=== PATIENT | female | born 1960 | race Caucasian/White ===

== ENCOUNTER 2018-12-13 06:15 | Day surgery (SDC) | payer OTHER ==
--- NOTE | 2018-12-07 14:01 | EKG ---
Test Date: 2018-12-07 Test Time: 10:27:29 Wire Stitcher Operator: REHANA MEASUREMENT RESULTS: Intervals: Rate: 84 VA: 164 QRSD: 92 QT: 366 QTc: 432 [place]: P: 67 VA: 164 QRS: 75 T: 58 INTERPRETIVE STATEMENTS: Normal sinus rhythm Possible Left atrial enlargement Borderline ECG No previous ECG available for comparison Electronically Signed On 12-07-18 14:00:27 PROCEDURE MANAGER by Otf Fenton
[2018-12-13] MEDS ORDERED: NA CHLORIDE 0.9% 1,000 ML ONE ×2 (07:02→07:26)
[2018-12-13] MEDS: LIDOCAINE 1% W/EPI 1:100,000 MDV 50 ML VIAL ONE ×2 (07:39→08:22)
[2018-12-13] MEDS ORDERED: PROPOFOL 200 MG/20 ML VIAL IV ONE (07:49)
[2018-12-13] MEDS ORDERED: FENTANYL CITR 100 MCG/2 ML ONE (07:49)
[2018-12-13] MEDS ORDERED: LIDOCAINE 2% MPF 5 ML VIAL ONE (07:49)
[2018-12-13] MEDS ORDERED: MIDAZOLAM HCL 2 MG/2 ML INJ ONE (07:49)
[2018-12-13] MEDS ORDERED: KETOROLAC 30 MG/ML INJ ONE (08:41)
--- NOTE | 2018-12-17 12:40 | OP ---
Surgeon: Shona Patel MD Preoperative Diagnosis: Postmenopausal bleeding. Postoperative Diagnosis: Postmenopausal bleeding. Procedures Performed: Hysteroscopy, dilation and curettage. Anesthesia: MAC plus paracervical block. Specimens: Endometrial curettings. Complications: None. Drains: None. Condition: Stable. Findings: Anterior wall with tiny polypoid area. Rest of endometrium completely unremarkable. No o ther intracavitary tumors. Both tubal ostia were well visualized. The entire cavity well visualized . Scant endometrial samplings were obtained. Indications: The patient is a 58-year-old with postmenopausal bleeding. Transvaginal ultrasound was done. She was consented for endometrial sampling to rule out endometrial hyperplasia or atypia. Donell ramírez has risk factors for this, and so she was consented. Also complained of pelvic pain that is new in onset. Her FSH level was 41.9 confirming menopause. Procedure In Detail: She was brought her to the OR, after re-consenting, taken back to the room, charlotte lesly in a supine fashion on the operating table. After MAC was given, she was placed in a dorsal lith otomy position using Jason stirrups. Pelvic exam was performed. Anteflexed uterus small. No adnexa l masses. Cervix prepped with Betadine x3. Anterior lip injected with 1% lidocaine mixed with 1:100 ,000 epinephrine, 10 cc and 5 cc each at 4 and 8 o'clock position at the cervicovaginal junction for a paracervical block. Anterior lip grasped with 2 Allis clamps. Direct hysteroscopy with a SlimLine hysteroscope, 30-degree lens, normal saline used. Canal was traversed directly under vision, and ut erine cavity was entered. Anterior wall with a polypoid area, this was scraped off the tip of the sc ope to detach this. Rest of the cavity unremarkable. Scope removed. Endometrial curettings were pe rformed. The small polypoid area was retrieved with the help of Joey forceps. After a sample was handed for permanent pathology, all instrument, needle, and sponge counts were done and were correct at the end of the case. The patient was recovered from anesthesia, after the counts were correct, t akangela to PACU in stable condition. She has a 1-week followup with me. JEANINE/NEVA Voice ID: [id number] Report ID: [id number]
== END 2018-12-13 09:35 | disposition home or self-care (01) ==
LOC: OR 06:15
PROVIDERS: ATTEND Obstetrics & Gynecology
PROC: 0UJD8ZZ Inspection of Uterus and Cervix, Via Natural or Artificial Opening Endoscopic (ICD-10-PCS; 2018-12-13)
PROC: 0UDB7ZX Extraction of Endometrium, Via Natural or Artificial Opening, Diagnostic (ICD-10-PCS; principal; 2018-12-13 07:30)
DX: N95.0 Postmenopausal bleeding (principal); R87.810 Cervical high risk human papillomavirus (HPV) DNA test positive; E11.9 Type 2 diabetes mellitus without complications; I10 Essential (primary) hypertension; E03.9 Hypothyroidism, unspecified; E06.3 Autoimmune thyroiditis; M06.9 Rheumatoid arthritis, unspecified; F32.9 Major depressive disorder, single episode, unspecified; F17.210 Nicotine dependence, cigarettes, uncomplicated; Z79.82 Long term (current) use of aspirin; Z82.49 Family history of ischemic heart disease and other diseases of the circulatory system
CPT/HCPCS: 58558; 82962; 88305; 93005; J2250; J2704; J3010; J7030 ×2

== ENCOUNTER 2020-10-28 09:46 | Inpatient (IN) | payer OTHER ==
[2020-10-28] MEDS ORDERED: IPRATROPIUM BROM 0.5MG/2.5ML ONE ×2 (10:20→18:03)
[2020-10-28] MEDS ORDERED: ALBUTEROL 2.5 MG/3 ML NEB SOL ONE (10:20)
[2020-10-28] MEDS ORDERED: dexAMETHasone 10 MG/ML VIAL ONE (10:21)
[2020-10-28 10:49] LABS: Absolute Lymphocytes (CBC) 1.5 K/uL (0.7-4.9); Basophils % 1.4 % (0-1.3); Hematocrit 49.8 % (36.0-45.0); Lymphocytes % 24.7 % (15.3-44.8); MPV 8.8 fL (7.6-11.3); RBC Red Blood Cell Count 5.19 M/uL (3.86-4.86)
[2020-10-28 10:55] LABS: Protime INR 0.92
--- NOTE | 2020-10-28 11:03 | RAD REPORT ---
EXAM DESCRIPTION: RAD - Chest Single View - 10/28/2020 10:41 am CLINICAL HISTORY: Dyspnea;Cough Chest pain. COMPARISON: Chest Pa And Lat (2 Views) dated 10/25/2020 FINDINGS: Portable technique limits examination quality. Bibasilar lung infiltrates are again seen, mildly progressive since the comparative study. Small bila teral pleural effusions. The heart is moderately enlarged in size. No displaced fractures. IMPRESSION: Mild worsening in bibasilar lung infiltrate since comparative study.
[2020-10-28 11:08] LABS: ALT/SGPT 41 U/L (12-78); AST/SGOT 35 U/L (15-37); Albumin 4.2 g/dL (3.4-5.0); Alkaline Phosphatase 94 U/L (45-117); BUN Blood Urea Nitrogen 43 mg/dL (7-18); Bicarbonate 28 mmol/L (21-32); Bilirubin Direct 0.2 mg/dL (0-0.2); Bilirubin Total 0.6 mg/dL (0.2-1.0); C-Reactive Protein 3.55 mg/L (<3.00); Ferritin 93.7 ng/mL (8-388); Glucose Level 156 mg/dL (74-106); Lipase 55 U/L (73-393); Potassium 4.2 mmol/L (3.5-5.1); Protein, Total 8.9 g/dL (6.4-8.2); Sodium Level 136 mmol/L (136-145); Troponin (Emerg Dept Use Only) < 0.02 ng/mL (0.0-0.045)
[2020-10-28] MEDS ORDERED: NA CHLORIDE 0.9% 1,000 ML ONE (11:20)
[2020-10-28] MEDS ORDERED: AZITHROMYCIN IV 500 MG in NA CHLORIDE 0.9% 250 ML IVPB ONE (11:30)
--- OUTSIDE RECORDS SUMMARY | 2020-10-28 11:35 | XMS REPORT | Continuity of Care Document ---
:1960 Author Organization [facility] t Address [address] [place] [address] Dr. Ortiz [address] [place] [address] Care Team Providers Name Role Phone Joao MACKEY Attending Clinician Problems Condition Condition Condition Status Onset Resolution Last Treating Co mments Source Name Details Category Date Date Treatment Clinician Date Hypothyroi Hypothyroi Problem Active V illage dism dism 07-24 Family 00:00: Practic 00 e Diabetes Diabetes Problem Active Carslon ge mellitus Mellitus 07-24 Family 00:00: Practic 00 e Hyperchole Hyperchole Problem Active V illage sterolemia sterolemia 07-24 Fa afshan 00:00: Practic 00 e Nicotine Nicotine Problem Active Carlson ge dependence Dependence 07-24 Fa afshan 00:00: Practic 00 e Insomnia Insomnia Problem Active 2020 Carlson ge 07-24 Family 00:00: Practic 00 e Hypertensi Hypertensi Problem Active V illage ve ve 07-24 Family disorder Disorder 00:00: Practi c 00 e Allergies, Adverse Reactions, Alerts This patient has no known allergies or adverse reactions. Social History Smoking Status Start Date Stop Date Source Light Tobacco Smoker [facility] Practice Medications Ordered Filled Start Stop Current Ordering Indication Dosage Frequency Signature Comments Components Source Medication Medication Date Date Medication? Clinician (SIG) Name Name enalapril enalapril No 1 Q1D enalapril [facility] maleate 10 maleate 10 maleate 10 Family mg tablet mg tablet mg tablet Practic Take 1 Take 1 Take 1 e tablet tablet tablet every day every day every day by oral by oral by oral route. route. route. hydrochloro hydrochloro No 1 Q1D hydrochlor [place] thiazide 25 thiazide 25 othiazide Family mg tablet mg tablet 25 mg Prac tic Take 1 Take 1 tablet e tablet tablet Take 1 every day every day tablet by oral by oral every day route. route. by oral route. levothyroxi levothyroxi No 1capsul Q1D levothyrox [facility] ne 125 mcg ne 125 mcg e(s) ine 125 Family capsule capsule mcg Practic Take 1 Take 1 capsule e capsule capsule Take 1 every day every day capsule by oral by oral every day route. route. by oral route. metformin metformin No 1 BID metformin [facility] 1,000 mg 1,000 mg 1,000 mg Fam emi tablet Take tablet Take tablet Practic 1 tablet 1 tablet Take 1 e twice a day twice a day tablet by oral by oral twice a route. route. day by oral route. trazodone trazodone No 1 Q1D trazodone [facility] 150 mg 150 mg 150 mg Family tablet Take tablet Take tablet Practic 1 tablet 1 tablet Take 1 e every day every day tablet by oral by oral every day route at route at by oral bedtime. bedtime. route at bedtime. Trulicity Trulicity No .5mL Q1W Trulicity [facility] 1.5 mg/0.5 1.5 mg/0.5 1.5 mg/0.5 Family mL mL mL Practic subcutaneou subcutaneou subcutaneo e s pen s pen us pen injector injector injector Inject 0.5 Inject 0.5 Inject 0.5 mL every mL every mL every week by week by week by subcutaneou subcutaneou subcutaneo s route. s route. us route. Vital Signs Vital Name Observation Time Observation Value Comments Source Height 2020-07-24 00:00:00 66 [in_i] [facility] BMI (Body Mass 2020-07-24 00:00:00 31.2 kg/m2 [facility] Index) Practice Body Weight 2020-07-24 00:00:00 193 [lb_av] [facility] Procedures This patient has no known procedures. Plan of Care Planned Activity Planned Date Details Comments Source Future Appointment 2021-01-21 00:00:00 Lovely Alm aDelia dunn [facility], [address]; [address], [place] [address] Instructions [facility] Encounters Start End Encounter Admission Attending Care Care Encounter Source Date/Time Date/Time Type Type Clinicians Facility Department ID 2020-10-27 2020-10-27 Refill Joao WADIEGO [id number] 00:00:00 00:00:00 Werner Benoit [id number] [place] [id number] Professio [phone] [address] 2020-09-20 2020-09-20 Office Joao [facility] [id number] 14:58:32 15:58:59 Visit Werner MULTISPEC [id number] [facility] [id number] [place] [phone] [place] [address] [facility] 2020-09-17 2020-09-17 Orders [facility]STER Shepherd [id number] 00:00:00 00:00:00 Only Werner SCHUMACHER [id number] [id number] 2020-09-13 2020-09-13 [facility] [id number] 00:00:00 00:00:00 Werner [place] [id number] [place] [id number] Professio [phone] [address] 2020-08-01 2020-08-01 Refill Joao, [facility] [id number] 00:00:00 00:00:00 Werner [place] [id number] [place] [id number] Professio [id number] [address] 2020-07-24 2020-07-24 Lovely [facility] [place] - [id number] V illage 00:00:00 00:00:00 [facility] emi farnsworth GLOBAL TRANSPORTATION MANAGER: Medical - Practi c [address] [email or web address] [facility], [address] [place] [address], [place] [address] , Ph. 2020-02-12 2020-02-12 Refill Joao [facility] [id number] 00:00:00 00:00:00 Werner Benoit [id number] [place] [id number] Profess [phone] [facility] [address] 2020-01-17 2020-01-17 Office Joao [facility] [id number] 09:30:52 10:40:44 Visit Werner Benoit [id number] [facility] [phone] [facility] [address] [facility] [address] Results This patient has no known results.
--- OUTSIDE RECORDS SUMMARY | 2020-10-28 11:36 | XMS REPORT | Summary of Care ---
:1960 Author Organization [facility] Address [address] [place] [address] Care Team Providers Name Role Phone Alex Mancilla MD Primary Care Provider [phone] Reason for Visit Reason Comments Refill Request Encounter Details Date Type Department Care Team Description 10/27/2020 Refill [facility] Endocrinology- Werner [place] [address] [address] [place] [address] [phone] Allergies Active Allergy Reactions Severity Noted Date Comments Codeine Nausea and/or Vomiting 02/11/2015 documented as of this encounter (statuses as of 10/27/2020) Medications Medication Sig Dispensed Refills Start End Date Status Date traZODONE (DESYREL) 100 Take 100 mg 0 Active mg tablet by mouth at bedtime. buPROPion (WELLBUTRIN) Take 100 mg 0 Active 100 mg tablet by mouth 3 (three) times daily. hydroCHLOROthiazide 25 Take 1 90 tablet 1 Active mg tabletIndications: tablet by 9 Essential hypertension mouth daily. ACCU-CHEK FASTCLIX Use as 100 Each 1 A ctive LANCET DRUM directed 9 MiscIndications: once a day Uncontrolled type 2 E11.65 diabetes mellitus with hyperglycemia ACCU-CHEK GUIDE USE 100 Strip 1 Acti ve stripIndications: DIRECTED 9 Uncontrolled type 2 ONCE A DAY diabetes mellitus with E11.65 hyperglycemia levothyroxine 125 mcg Take 1 90 tablet 3 Active tabletIndications: tablet by 0 Acquired hypothyroidism mouth every morning. metFORMIN 1,000 mg TAKE 1 180 tablet 3 Active tabletIndications: TABLET BY 0 Uncontrolled type 2 MOUTH TWICE diabetes mellitus with A DAY WITH hyperglycemia MEALS dulaglutide (TRULICITY) inject 1.5 6 mL 3 Active 1.5 mg/0.5 mL mg under the 0 PnIjIndications: skin weekly. Uncontrolled type 2 diabetes mellitus with hyperglycemia dapagliflozin (FARXIGA) Take 1 90 tablet 1 Active 10 mg tabletIndications: tablet by 0 Type 2 diabetes with mouth every complication morning. ATORVASTATIN 10 mg TAKE 1 90 tablet 1 A ctive tabletIndications: Mixed TABLET BY 0 hyperlipidemia MOUTH EVERYDAY AT BEDTIME ENALAPRIL 20 mg TAKE 1 90 tablet 1 Acti ve tabletIndications: TABLET BY 0 Essential hypertension MOUTH EVERY DAY ENALAPRIL 20 mg TAKE 1 90 tablet 0 10/27/20 Disc ontinued tabletIndications: TABLET BY 0 20 Essential hypertension MOUTH EVERY DAY ATORVASTATIN 10 mg TAKE 1 90 tablet 0 10/27/20 D iscontinued tabletIndications: Mixed TABLET BY 0 20 hyperlipidemia MOUTH EVERYDAY AT BEDTIME documented as of this encounter (statuses as of 10/27/2020) Active Problems Problem Noted Date Uncontrolled type 2 diabetes mellitus with hyperglycem ia 09/20/2020 PVD (peripheral vascular disease) 08/19/2016 Type 2 diabetes mellitus without complication 08/19/20 16 Elevated hematocrit 08/19/2016 Primary hypothyroidism 08/19/2016 documented as of this encounter (statuses as of 10/27/2020) Social History Tobacco Use Types Packs/Day Years Used Date Current Every Day Smoker Cigarettes, Cigars Smokeless Tobacco: Never Used Alcohol Use Drinks/Week oz/Week Comments No Sex Assigned at Date Recorded Not on file documented as of this encounter Last Filed Vital Signs Not on filedocumented in this encounter Miscellaneous Notes Telephone Encounter - Zoey Gonzalez RN - 10/27/2020 3:57 PM CSTNOV: 03/25/21 STONE: 09/20/20 plan - atorvastatin 10 mg tablet; Take 1 tablet by mouth at bedtime - enalapril 20 mg tablet; Take 1 tablet by mouth daily. Refill sent. documented in this encounter Plan of Treatment Date Type Specialty Care Team Description 03/25/2021 Office Visit Endocrinology Diabetes & Joao, Ezequiel wu MD Metabolism [address] [place] [address] [phone] Health Maintenance Due Date Last Done Comments HEPATITIS C (HCV) SCREEN 1960 Depression Screening 1971 DTaP,Tdap,and Td Vaccines 1978 (1 - Tdap) PAP SMEAR 1980 COLON CANCER SCREENING 2009 ANNUAL FIT/FOBT COLON CANCER SCREENING FIT 2009 DNA EVERY 3 YEARS COLON CANCER SCREENING 2009 SIGMOIDOSCOPY EVERY 5 YEARS COLONOSCOPY 2009 Colorectal Cancer Screening 2009 Zoster Recombinant Vaccine 2009 (SHINGRIX) (1 of 2) LUNG CANCER SCREEN: 2014 Recommended for age 55-80 with 30 + pack year history Breast Cancer Screening 09/16/2019 09/16/2018 (MAMMOGRAM) INFLUENZA VACCINE (#1) 2020 EYE EXAM 11/15/2020 Postponed from 1969 ([place] Guidelines) HgA1C 03/21/2021 09/20/2020, 01/17/2020, 03/21/2019, Additional history exists CREATININE (SERUM) 09/17/2021 09/17/2020, 03/21/2019, 02/11/2015 LDL-C 09/17/2021 09/17/2020, 03/21/2019 URINE MICROALBUMIN 09/17/2021 09/17/2020, 03/21/2019 FOOT EXAM 09/20/2021 09/20/2020, 09/20/2020, 01/17/2020, Additional history exists PNEUMOCOCCAL 0-64 YEARS Aged Out No longe r eligible COMBINED SERIES based on patient 's age to complete this topic documented as of this encounter Results Not on filedocumented in this encounter Visit Diagnoses Diagnosis Mixed hyperlipidemia Essential hypertension Unspecified essential hypertension documented in this encounter Insurance Payer Benefit Plan / Subscriber ID Effective Phone Address T e Group Dates [facility] [id number] 2020-Pres Medicare Adv PLUS STAR PLUS ent HMO [facility] [id number] 2019-Pres Medic are Adv MEDICARE NON MEDICARE NON ent PPO CONTRACTED CONTRACTED documented as of this encounter
--- NOTE | 2020-10-28 12:26 | RAD REPORT ---
EXAM DESCRIPTION: CT - Chest For Pe Angio - 10/28/2020 11:39 am CLINICAL HISTORY: Chest pain. Cough;Congestion COMPARISON: No comparisons TECHNIQUE: CT angiogram of the pulmonary arteries was performed with MIP. All CT scans are performed using dose optimization technique as appropriate and may include automated exposure control or mA/KV adjustment according to patient size. FINDINGS: No evidence of pulmonary thromboembolism. No acute aortic finding demonstrated. Ground-glass opacity in both lungs is noted with atelectasis present, suggesting mild interstitial pu lmonary edema. Cardiac size is prominent. Small bilateral pleural effusions. No concerning bony finding. IMPRESSION: No evidence of pulmonary thromboembolism. Mild CHF suspected.
[2020-10-28 13:08] LABS: NT PRO-BNP 7324 pg/mL (<125)
--- NOTE | 2020-10-28 13:55 | P.HP ---
Certification for Inpatient Patient admitted to: Observation With expected LOS: <2 Midnights Patient will require the following post-hospital care: None Practitioner: I am a practitioner with admitting privileges, knowledge of patient current condition, hospital course, and medical plan of care. Services: Services provided to patient in accordance with Admission requirements found in Title 42 Section 412.3 of the Code of Federal Regulations Patient History Date of Service: 10/28/20 Primary Care Provider: Dr. Perry Reason for admission: Dyspnea History of Present Illness: 60-year-old female with history of tobacco abuse, COPD, hypertension, diabetes, hypothyroidism, hyperlipidemia. Patient reported shortness of breath over the past 1-2 months. She was seen early in September and given Augmentin for 10 days. She reported some improvement. Then the shortness of breath continued. She then used her albuterol medication with improvement bed noted that she had to increase her frequency just to get some relief. She had reported some increased nasal congestion. She denies any fever, chills. She reports being seen by endocrinology 1-2 weeks ago. It was noted that her blood pressure was low at that time. Endocrinology decided to take her off of hydrochlorothiazide. Patient also takes enalapril. Her shortness of breath in an improved. She was told to come to the ER for further evaluation. In the ER patient evaluated. Blood pressure initially 101/58. White count 6.1, hemoglobin 16. Platelet count 178. Sodium 136, potassium 4.2. BUN of 43, creatinine 1.54 with a GFR 34. Glucose 156. Chest x-rayed showed some possible CHF. CT chest shows no pulmonary embolism. Interstitial edema noted likely CHF. COVId negative. D-dimer 550. Lactic acid within normal range at 1.3. Pro calcitonin unremarkable. BNP elevated greater than 7000. Patient given IV fluids in the emergency room. Patient stable this time. Patient admitted for further evaluation. When I saw the patient ER, patient alert, cooperative. Patient appears dry. Blood pressure is still running around 85-95 systolic with map of greater than 65. Allergies No Known Allergies Allergy (Verified 12/07/18 10:31) Home medications list reviewed: Yes Home Medications: Aspirin [Aspirin EC 81 MG] 81 mg PO DAILY 12/07/18 Atorvastatin Calcium [Lipitor] 10 mg PO BEDTIME 12/07/18 Calcium/Magnesium/Vitamin D3 [Ritchie-Mag Complex 300-150 mg Tab] 1 each PO DAILY 12/07/18 Cholecalciferol (Vitamin D3) [Vitamin D3] 1,000 unit PO DAILY 12/07/18 Dulaglutide [Trulicity] 1.5 mg SQ DAILY 12/07/18 Enalapril Maleate [Vasotec] 20 mg PO DAILY 12/07/18 Levothyroxine [Synthroid] 125 mcg PO [id number] 12/07/18 Metformin HCl [Glucophage] 1,000 mg PO DAILY 12/07/18 Selenium 50 mcg PO DAILY 12/07/18 Trazodone [Desyrel] 150 mg PO BEDTIME 12/07/18 hydroCHLOROthiazide [Hydrochlorothiazide] 25 mg PO DAILY 12/07/18 - Past Medical/Surgical History Diabetic: Yes -: Diabetes mellitus type 2 [id number] -: Hypertension -: Hyperlipidemia -: Hypothyroidism -: Tobacco abuse -: COPD -: Left knee surgery -: Tonsillectomy Psychosocial/ Personal History: Patient is a . She has 3 children. She does not work. - Family History Sister -: Hypertension - Social History Smoking Status: Current every day smoker Counseled patient to stop smoking for: less than 10 minutes Smoking therapy provided: Yes Patient receptive to therapy: Yes Alcohol use: No CD- Drugs: No Caffeine use: Yes Place of Residence: Home Review of Systems General: As per HPI Eyes: Unremarkable ENT: Nose Congestion, As per HPI Respiratory: Shortness of Breath, SOB with Excertion, As per HPI Cardiovascular: Unremarkable Gastrointestinal: Unremarkable Genitourinary: Unremarkable Musculoskeletal: Unremarkable Integumentary: Unremarkable Neurological: Unremarkable Lymphatics: Unremarkable Physical Examination - Physical Exam General: Alert, In no apparent distress, Oriented x3, Cooperative HEENT: Atraumatic, Normocephalic, Other (Dry mucous membranes) Neck: Supple Respiratory: Diminished (Minimal to the bases but clear), Other (Occasional wheeze.) Cardiovascular: Normal pulses, Regular rate/rhythm Gastrointestinal: Normal bowel sounds, Soft and benign, Non-distended, No tenderness, No masses, No rebound, No guarding Musculoskeletal: No erythema, No tenderness, No warmth Integumentary: No tenderness/swelling, Other (Dry skin noted) Neurological: Normal speech, Normal strength at 5/5 x4 extr, Normal tone, Normal affect - Studies Laboratory Data (last 24 hrs) 10/28/20 10:32: PT 10.9, INR 0.92, APTT 30.9 10/28/20 10:32: WBC 6.1, Hgb 16.6 H, Hct 49.8 H, Plt Count 178 10/28/20 10:32: Sodium 136, Potassium 4.2, BUN 43 H, Creatinine 1.54 H, Glucose 156 H, Total Bilirubin 0.6, AST 35, ALT 41, Alkaline Phosphatase 94, Lipase 55 L Microbiology Data (last 24 hrs): 10/28/20 10:12 Nasopharnyx Influenza Type A Antigen Screen - Final 10/28/20 10:12 Nasopharnyx Influenza Type B Antigen Screen - Final Assessment and Plan - Plan Impression: Dyspnea likely secondary to acute on chronic COPD with component of acute on chronic CHF likely diastolic Acute renal insufficiency suspect dehydration Hypotension with history of hypertension likely medication related Diabetes mellitus type 2 [id number]-[id number] Hypothyroidism Hyperlipidemia Tobacco abuse Plan: Dyspnea likely secondary to acute on chronic COPD with component of acute on chronic CHF likely diastolic: Patient will be admitted for further evaluation and treatment. Patient received 1 L bolus in the emergency room. Patient appears stable but will continue with maintenance fluids. Will also start Lasix low-dose b.i.d.. Obtain echocardiogram to further evaluate. Continue monitor electrolytes, telemetry and lab. Will consult pulmonology and Cardiology for further recommendation. For now no evidence of sepsis or infection. Will treat with oral steroid, COPD medication including Dulera and albuterol. Discontinue ABBEY-inhibitor and hydrochlorothiazide. Will continue monitor blood pressure closely. Anticipate improvement over the next 24 hr with possible discharge pre Acute renal insufficiency suspect dehydration: Likely pre renal. Continue IV fluids. Discontinue enalapril and hydrochlorothiazide. Will hold off on metformin as well. Will obtain renal ultrasound to further evaluate. May need to make further adjustments in medication. Hypotension with history of hypertension likely medication related: Hold enalapril and hydrochlorothiazide. Continue as above. Diabetes mellitus type 2 dlj-yccvesg-uddhrhwjb: Will check A1c. Continue sliding scale. Hold metformin and Farxiga. Hypothyroidism: Continue with home medication. Will check tsh and free T4. Hyperlipidemia: Continue with medication. Will check fasting lipid panel in the a.m.. Tobacco abuse: Will provide Nicoderm. Will teach on cessation education. Discharge Plan: Home Plan to discharge in: 24 Hours - Advance Directives Does patient have a Living Will: No Does patient have a Durable POA for Healthcare: No - Code Status/Comfort Care Code Status Assessed: Yes (Patient is full code) Time Spent Managing Pts Care (In Minutes): 55
[2020-10-28] MEDS ORDERED: GLUCAGON 1 MG/VIAL IM PRN (14:37)
[2020-10-28] MEDS ORDERED: ACETAMINOPHEN 500 MG TAB PO PRN (14:37)
[2020-10-28] MEDS ORDERED: IPRATROPIUM 200 PUFF/12.9 GM INH IH PRN (14:37)
[2020-10-28] MEDS ORDERED: ONDANSETRON 4 MG/2 ML VIAL IV PRN (14:37)
[2020-10-28] MEDS ORDERED: D50W 25 GM/50 ML SYRINGE IV PRN (14:37)
[2020-10-28] MEDS ORDERED: NA CHLORIDE 0.9% 1,000 ML IV SCH (14:37)
[2020-10-28] MEDS ORDERED: ALBUTEROL INHALER 60 PUFF/8 GM IH PRN (14:37)
--- NOTE | 2020-10-28 14:53 | ER ---
Nurse's Notes [facility] Name: Sailaja Dickens Age: 60 yrs Sex: Female : 1960 Arrival Date: 10/28/2020 Time: 09:49 Bed 8 Private MD: Alex Perry R Diagnosis: Dyspnea;Pneumonia, unspecified organism Presentation: 10/28 10:01 Chief complaint: Patient states: diagnosed with pneumonia , finished antibiotics and iw still not getting better, was sent to ER by Dr. Perry, pt has been having increasing SOB and productive cough, was COVID negative two weeks ago, no fever, has been using albuterol inhaler every 2-3 hours. Coronavirus screen: cough unrelated to allergies, shortness of breath, Client presents with at least one sign or symptom that may indicate coronavirus-19. Standard/surgical mask placed on the client. Provider contacted for isolation considerations. Ebola Screen: Patient negative for fever greater than or equal to 101.5 degrees Fahrenheit, and additional compatible Ebola Virus Disease symptoms Patient denies exposure to infectious person. Patient denies travel to an Ebola-affected area in the 21 days before illness onset. No symptoms or risks identified at this time. Initial Sepsis Screen: Does the patient meet any 2 criteria? No. Patient's initial sepsis screen is negative. Does the patient have a suspected source of infection? No. Patient's initial sepsis screen is negative. Risk Assessment: Do you want to hurt yourself or someone else? Patient reports no desire to harm self or others. Onset of symptoms was August 2020. 10:01 Method Of Arrival: Ambulatory iw 10:01 Acuity: ANGELINA 3 iw 10:45 Care prior to arrival: None. jl7 Historical: - Allergies: 10:50 No Known Allergies; jl7 - Home Meds: 10:50 Trulicity 1.5 mg/0.5 mL subcutaneous pnij 0.5 mL once wkly [Active]; Farxiga 10 mg oral jl7 tab 1 tab once daily [Active]; hydrochlorothiazide 25 mg Oral tab 1 tab once daily [Active]; levothyroxine 125 mcg tab 1 tab once daily [Active]; metformin 1,000 mg Oral tab 1 tab 2 times per day [Active]; trazodone 100 mg Oral tab [Active]; enalapril maleate 20 mg oral tab once daily [Active]; atorvastatin 10 mg oral tab 1 tab once daily [Active]; aspirin 81 mg Oral TbEC 1 tab once daily [Active]; - PMHx: 10:50 Hypothyroidism; High Cholesterol; Diabetes - NIDDM; Hypertension; jl7 - PSHx: 10:50 Tonsillectomy; Knee surgery; jl7 - Immunization history:: Adult Immunizations not up to date. - Social history:: Smoking status: Patient reports the use of cigarette tobacco products, cigars. Screenin:52 Abuse screen: Denies threats or abuse. Denies injuries from another. Nutritional jl7 screening: No deficits noted. Tuberculosis screening: No symptoms or risk factors identified. Fall Risk IV access (20 points). Total Peterson Fall Scale indicates No Risk (0-24 pts). Assessment: 10:00 General: Appears in no apparent distress. uncomfortable, Behavior is calm, cooperative, jl7 appropriate for age. Pain: Denies pain. Neuro: Level of Consciousness is awake, alert, obeys commands, Oriented to person, place, time, situation. Cardiovascular: Rhythm is regular. Respiratory: Reports shortness of breath Airway is patent Respiratory effort is even, unlabored, Respiratory pattern is regular, symmetrical. Derm: Skin is pink, warm \T\ dry. 11:30 Reassessment: Patient appears in no apparent distress at this time. Patient and/or jl7 family updated on plan of care and expected duration. Pain level reassessed. Patient is alert, oriented x 3, equal unlabored respirations, skin warm/dry/pink. Patient states feeling better. 12:43 Reassessment: Patient appears in no apparent distress at this time. Patient and/or jl7 family updated on plan of care and expected duration. Pain level reassessed. Patient is alert, oriented x 3, equal unlabored respirations, skin warm/dry/pink. Patient states feeling better. Patient states symptoms have improved. 12:55 Reassessment: Dr. Laurent at bedside. jl7 Vital Signs: 10:06 BP 123 / 86; Pulse 112; Resp 22 S; Temp 97.6; Pulse Ox 98% on R/A; iw 10:53 BP 101 / 67; Pulse 91; Resp 17; Pulse Ox 100% ; jl7 11:12 BP 91 / 62; Pulse 92; Resp 19 S; Pulse Ox 98% on R/A; jl7 12:00 BP 99 / 73; Pulse 105; Resp 17; Pulse Ox 97% ; jl7 13:08 BP 89 / 67; Pulse 112; Resp 19; Pulse Ox 96% ; jl7 14:32 BP 87 / 65; Pulse 101; Resp 17; Pulse Ox 95% ; jl7 ED Course: 09:49 Patient arrived in ED. as 09:49 Alex Perry MD is Private Physician. as 09:52 Tiara Dunaway FNP-C is [facility]. kb 09:52 Ru Lamsa MD is Attending Physician. kb 10:04 Luis Nguyen, PRANEETH is Primary Nurse. jl7 10:06 Triage completed. iw 10:15 COVID swab sent to lab. Flu and/or RSV swab sent to lab. jl7 10:28 Initial lab(s) drawn, by me, sent to lab. First set of blood cultures drawn by me. jl7 10:32 Second set of blood cultures drawn by me, EKG done, by ED staff, reviewed by Tiara PICKARD. 10:41 CXR XRAY In Process Unspecified. EDMS 10:52 Patient has correct armband on for positive identification. Placed in gown. Bed in low jl7 position. Call light in reach. Side rails up X 1. 10:52 Inserted saline lock: 20 gauge in right antecubital area, using aseptic technique. jl7 Blood collected. 10:54 Arm band placed on right wrist. jl7 11:00 secured entrance monitor on. Pulse ox on. NIBP on. jl7 11:39 CT Chest For PE Angio In Process Unspecified. EDMS 12:50 Dread Laurent DO is Hospitalizing Provider. kb 14:43 No provider procedures requiring assistance completed. Patient admitted, IV remains in jl7 place. intact, No redness/swelling at site. Administered Medications: 10:32 Drug: Decadron - Dexamethasone 10 mg Route: IVP; Site: right antecubital; jl7 12:44 Follow up: Response: No adverse reaction jl7 10:38 Drug: DuoNeb (3:1) (2.5 mg - 0.5 mg) 3 ml Route: Nebulizer; jl7 12:44 Follow up: Response: No adverse reaction jl7 11:10 Drug: NS 0.9% 1000 ml Route: IV; Rate: 1000 ml; Site: right antecubital; jl7 12:30 Follow up: Response: No adverse reaction; IV Status: Completed infusion jl7 12:02 Drug: Zithromax 500 mg Route: IVPB; Infused Over: 1 hrs; Site: right antecubital; jl7 13:00 Follow up: Response: No adverse reaction; IV Status: Completed infusion jl7 Outcome: 10:15 Admitted to Tele accompanied by tech, via wheelchair, room 213, with chart. jl7 10:15 Condition: stable 10:15 Discharge instructions given to patient, Instructed on the need for admit, Demonstrated understanding of instructions. 12:50 Decision to Hospitalize by Provider. kb 14:45 Patient left the ED. jl7 Signatures: Dispatcher [employer] Tiara Ch, CABLE DISPATCHER-C RIMMA-Fatoumata Artis Irene, RN Luis Holden RN RN jl7
--- NOTE | 2020-10-28 14:58 | EDPHYS ---
Physician Documentation [facility] Name: Sailaja Dickens Age: 60 yrs Sex: Female : 1960 Arrival Date: 10/28/2020 Time: 09:49 Bed 8 Private MD: Alex Perry R ED Physician Ru Lamas HPI: 10/28 10:59 This 60 yrs old Female presents to ER via Ambulatory with complaints of kb Shortness Of Breath. 10:59 The patient has shortness of breath with light activity. Onset: The symptoms/episode kb began/occurred 1.5 month(s) ago. Duration: The symptoms are continuous. The patient's shortness of breath is aggravated by exertion. Associated signs and symptoms: Pertinent positives: productive cough. Severity of symptoms: At their worst the symptoms were moderate in the emergency department the symptoms are unchanged. The patient has not experienced similar symptoms in the past. The patient has been recently seen by a physician:. Pt reports cough and shortness of breath since the end of August. States she has taken a course of Augmentin without relief. x-ray done on Wednesday, ordered by Dr Perry. Wednesday was called and told to come to the ER for pneumonia. Pt states she was scared to come, but her daughter in law convinced her to today. Historical: - Allergies: 10:50 No Known Allergies; jl7 - Home Meds: 10:50 Trulicity 1.5 mg/0.5 mL subcutaneous pnij 0.5 mL once wkly [Active]; Farxiga 10 mg oral jl7 tab 1 tab once daily [Active]; hydrochlorothiazide 25 mg Oral tab 1 tab once daily [Active]; levothyroxine 125 mcg tab 1 tab once daily [Active]; metformin 1,000 mg Oral tab 1 tab 2 times per day [Active]; trazodone 100 mg Oral tab [Active]; enalapril maleate 20 mg oral tab once daily [Active]; atorvastatin 10 mg oral tab 1 tab once daily [Active]; aspirin 81 mg Oral TbEC 1 tab once daily [Active]; - PMHx: 10:50 Hypothyroidism; High Cholesterol; Diabetes - NIDDM; Hypertension; jl7 - PSHx: 10:50 Tonsillectomy; Knee surgery; jl7 - Immunization history:: Adult Immunizations not up to date. - Social history:: Smoking status: Patient reports the use of cigarette tobacco products, cigars. ROS: 10:58 Constitutional: Negative for fever, chills, and weight loss, Cardiovascular: Negative kb for chest pain, palpitations, and edema, Abdomen/GI: Negative for abdominal pain, nausea, vomiting, diarrhea, and constipation, Back: Negative for injury and pain, MS/Extremity: Negative for injury and deformity, Skin: Negative for injury, rash, and discoloration, Neuro: Negative for headache, weakness, numbness, tingling, and seizure. 10:58 Respiratory: Positive for cough, dyspnea on exertion, shortness of breath, Negative for hemoptysis, orthopnea, pleurisy, wheezing. Exam: 10:57 Constitutional: This is a well developed, well nourished patient who is awake, alert, kb and in no acute distress. Head/Face: Normocephalic, atraumatic. Chest/axilla: Normal chest wall appearance and motion. Nontender with no deformity. No lesions are appreciated. Cardiovascular: Regular rate and rhythm with a normal S1 and S2. No gallops, murmurs, or rubs. Normal PMI, no JVD. No pulse deficits. Abdomen/GI: Soft, non-tender, with normal bowel sounds. No distension or tympany. No guarding or rebound. No evidence of tenderness throughout. Back: No spinal tenderness. No costovertebral tenderness. Full range of motion. Skin: Warm, dry with normal turgor. Normal color with no rashes, no lesions, and no evidence of cellulitis. MS/ Extremity: Pulses equal, no cyanosis. Neurovascular intact. Full, normal range of motion. Neuro: Awake and alert, GCS 15, oriented to person, place, time, and situation. Cranial nerves II-XII grossly intact. Motor strength 5/5 in all extremities. Sensory grossly intact. Cerebellar exam normal. Normal gait. 10:57 Respiratory: the patient does not display signs of respiratory distress, Respirations: normal, symetrical, Breath sounds: wheezing: inspiratory that is mild, is scattered. 10:57 ECG was reviewed by the Attending Physician. kb Vital Signs: 10:06 BP 123 / 86; Pulse 112; Resp 22 S; Temp 97.6; Pulse Ox 98% on R/A; iw 10:53 BP 101 / 67; Pulse 91; Resp 17; Pulse Ox 100% ; jl7 11:12 BP 91 / 62; Pulse 92; Resp 19 S; Pulse Ox 98% on R/A; jl7 12:00 BP 99 / 73; Pulse 105; Resp 17; Pulse Ox 97% ; jl7 13:08 BP 89 / 67; Pulse 112; Resp 19; Pulse Ox 96% ; jl7 14:32 BP 87 / 65; Pulse 101; Resp 17; Pulse Ox 95% ; jl7 MDM: 09:52 Patient medically screened. kb 10:58 Data reviewed: vital signs, nurses notes. Data interpreted: Pulse oximetry: on room air kb is 100 %. Interpretation: normal. 12:49 Counseling: I had a detailed discussion with the patient and/or guardian regarding: the kb historical points, exam findings, and any diagnostic results supporting the discharge/admit diagnosis, lab results, radiology results, the need for further work-up and treatment in the hospital. Physician consultation: Dread Laurent DO was contacted at 12:49, regarding admission, to the telemetry unit. patient's condition, in the emergency department to see patient at 12:49. 10/28 10:02 Order name: Blood Culture Adult (2) kb 10/28 10:02 Order name: BMP; Complete Time: 13:12 kb 10/28 10:02 Order name: C-Reactive Protein; Complete Time: 13:12 kb 10/28 10:02 Order name: CBC with Diff; Complete Time: 10:52 kb 10/28 10:02 Order name: D-Dimer; Complete Time: 11:02 kb 10/28 10:02 Order name: Ferritin; Complete Time: 13:12 kb 10/28 10:02 Order name: Flu; Complete Time: 10:52 kb 10/28 10:02 Order name: Lactate; Complete Time: 11:10 kb 10/28 10:02 Order name: LFT's; Complete Time: 13:12 kb 10/28 10:02 Order name: Lipase; Complete Time: 13:12 kb 10/28 10:02 Order name: Procalcitonin; Complete Time: 11:47 kb 10/28 10:02 Order name: PT-INR; Complete Time: 11:02 kb 10/28 10:02 Order name: Ptt, Activated; Complete Time: 11:02 kb 10/28 10:02 Order name: Troponin (emerg Dept Use Only); Complete Time: 13:12 kb 10/28 10:02 Order name: CXR XRAY; Complete Time: 11:10 kb 10/28 10:02 Order name: EKG; Complete Time: 10:08 kb 10/28 10:02 Order name: Cardiac monitoring; Complete Time: 10:44 kb 10/28 10:02 Order name: Droplet/Contact Precautions; Complete Time: 10:44 kb 10/28 10:02 Order name: EKG - Nurse/Tech; Complete Time: 10:44 kb 10/28 10:02 Order name: IV Start; Complete Time: 10:44 kb 10/28 10:02 Order name: Labs collected and sent; Complete Time: 10:44 kb 10/28 11:02 Order name: CT Chest For PE Angio; Complete Time: 12:43 kb 10/28 11:29 Order name: SARS-COV-2 RT PCR; Complete Time: 11:32 EDMS 10/28 12:45 Order name: Add On-Lab kb 10/28 12:54 Order name: NT PRO-BNP; Complete Time: 13:12 EDMS 10/28 10:02 Order name: O2 Per Protocol; Complete Time: 10:44 kb 10/28 10:02 Order name: O2 Sat Monitoring; Complete Time: 10:44 kb EC:57 Rate is 103 beats/min. Rhythm is regular. QRS [place] is Normal. [place] interval is normal at kb 198 msec. QRS interval is normal at 98 msec. QT interval is normal at 344 msec. Administered Medications: 10:32 Drug: Decadron - Dexamethasone 10 mg Route: IVP; Site: right antecubital; jl7 12:44 Follow up: Response: No adverse reaction jl7 10:38 Drug: DuoNeb (3:1) (2.5 mg - 0.5 mg) 3 ml Route: Nebulizer; jl7 12:44 Follow up: Response: No adverse reaction jl7 11:10 Drug: NS 0.9% 1000 ml Route: IV; Rate: 1000 ml; Site: right antecubital; jl7 12:30 Follow up: Response: No adverse reaction; IV Status: Completed infusion jl7 12:02 Drug: Zithromax 500 mg Route: IVPB; Infused Over: 1 hrs; Site: right antecubital; jl7 13:00 Follow up: Response: No adverse reaction; IV Status: Completed infusion jl7 Disposition: 17:44 Co-signature as Attending Physician, Ru Lamas MD. rn Disposition: 10/28/20 12:50 Hospitalization ordered by Dread Laurent for Observation. Preliminary diagnosis are Dyspnea, Pneumonia, unspecified organism. - Bed requested for Telemetry/MedSurg (observation). - Status is Observation. jl7 - Condition is Stable. - Problem is new. - Symptoms are unchanged. Signatures: Dispatcher [employer] EDCT Tiara Dunaway, MACHINE OR MACHINERY MECHANIC-C MACHINE OR MACHINERY MECHANIC-Ckb Melanie Sanchez, RN RN dw Ru Lamas MD MD rn Leal, Jahala, RN RN jl7 Corrections: (The following items were deleted from the chart) 10:35 10:08 CORONAVIRUS+MR.LAB.BRZ ordered. [facility] 13:59 12:50 Hospitalization Ordered by Dread Laurent DO for Observation. Preliminary diagnosis is Dyspnea; Pneumonia, unspecified organism. Bed requested for Telemetry/MedSurg (observation). Status is Observation. Condition is Stable. Problem is new. Symptoms are unchanged. kb 14:45 13:59 10/28/2020 12:50 Hospitalization Ordered by Dread Laurent DO for Observation. jl7 Preliminary diagnosis is Dyspnea; Pneumonia, unspecified organism. Bed requested for Telemetry/MedSurg (observation). Status is Observation. Condition is Stable. Problem is new. Symptoms are unchanged. dw
[2020-10-28] MEDS: predniSONE 10 MG TAB PO SCH ×2 (15:40→21:22)
[2020-10-28] MEDS: FUROSEMIDE 20 MG TABLET PO SCH (16:09)
--- NOTE | 2020-10-28 16:34 | RAD REPORT ---
EXAM DESCRIPTION: US - Renal Ultrasound-Complete - 10/28/2020 3:59 pm CLINICAL HISTORY: . Chronic renal disease COMPARISON: None. FINDINGS: The right kidney measures 10 cm with a normal echotexture. The left kidney measures 10 cm with a normal echotexture. Hydronephrosis is not seen. The bladder is decompressed as the patient recently voided. IMPRESSION: Unremarkable renal ultrasound.
[2020-10-28] MEDS: INSULIN -REGULAR HUMAN 50 UNIT/0.5 ML ML SQ SCH ×2 (16:36→21:22)
[2020-10-28] MEDS ORDERED: LEVALBUTEROL 1.25 MG/3 ML NEB ONE (18:06)
[2020-10-28 18:31] LABS: Urine Appearance CLEAR; Urine Bilirubin NEGATIVE (NEG); Urine Blood 1+ (NEG); Urine Color YELLOW; Urine Glucose 3+ (NEG); Urine Protein NEGATIVE (NEG); Urine Specific Gravity >=1.030 (1.005-1.030)
[2020-10-28 18:43] LABS: Urine Microscopic Reflex ORDER UMIC
[2020-10-28 18:49] LABS: Urine Bacteria <20 /HPF (<20); Urine Mucus 1+ /HPF (NONE SEEN)
[2020-10-28] MEDS ORDERED: LORazepam 2 MG/ML VIAL IV ONE (19:39)
[2020-10-28 19:42] LABS: CKMB Creatine Kinase MB 2.8 ng/mL (0.3-3.6); Creatine Phosphokinase 109 U/L (26-192); Troponin I < 0.02 ng/mL (0.0-0.045)
[2020-10-28] MEDS: DULERA 100/5 (MOMETASONE/FORMOTEROL) INHALER IH SCH (21:00)
[2020-10-28] MEDS: ATORVASTATIN 40 MG TAB PO SCH (21:22)
[2020-10-28] MEDS ORDERED: TRAZODONE 50 MG TABLET PO PRN (21:47)
[2020-10-29 01:38] LABS: Arterial Blood Carboxyhemoglob 3.6 % (0-1.5); Blood Gas Oxyhemoglobin 89.1 % (94-97); Blood O2 Saturation 93.5 % (92-98.5)
[2020-10-29] MEDS ORDERED: LORazepam 2 MG/ML VIAL ONE (02:20)
[2020-10-29 05:31] LABS: Absolute Lymphocytes (CBC) 0.6 K/uL (0.7-4.9); Basophils % 0.3 % (0-1.3); Hematocrit 47.1 % (36.0-45.0); Lymphocytes % 8.5 % (15.3-44.8); MPV 9.2 fL (7.6-11.3); RBC Red Blood Cell Count 4.84 M/uL (3.86-4.86)
[2020-10-29 05:34] LABS: CKMB Creatine Kinase MB 7.2 ng/mL (0.3-3.6); Potassium 4.5 mmol/L (3.5-5.1); Thyroid Stimulating Hormone 0.95 uIU/mL (0.360-3.740); Troponin I 0.35 ng/mL (0.0-0.045)
[2020-10-29] MEDS: LEVOTHYROXINE SOD 0.125 MG TAB PO SCH (06:42)
[2020-10-29 06:44] LABS: Platelet Estimate ADEQ
[2020-10-29 06:45] LABS: Blood Morphology Comment NOTED (NOT SEEN); Burr Cells 1+; Polychromasia SLIGHT
[2020-10-29] MEDS ORDERED: HEPARIN/D5W 25,000 UNIT/500 ML BAG IV SCH (07:00)
[2020-10-29] MEDS: INSULIN -REGULAR HUMAN 50 UNIT/0.5 ML ML SQ SCH ×4 (07:30→20:26)
[2020-10-29] MEDS: LEVALBUTEROL 0.63 MG/3 ML NEB NEB PRN ×3 (07:54→20:30)
[2020-10-29] MEDS: FUROSEMIDE 20 MG TABLET PO SCH (08:52)
[2020-10-29] MEDS: ASPIRIN 81 MG CHEWABLE TABLET PO SCH (08:53)
[2020-10-29] MEDS: predniSONE 10 MG TAB PO SCH (08:53)
[2020-10-29] MEDS: DULERA 100/5 (MOMETASONE/FORMOTEROL) INHALER IH SCH ×2 (08:54→20:26)
[2020-10-29] MEDS ORDERED: ENOXAPARIN 40 MG/0.4 ML SQ SCH (09:00)
[2020-10-29] MEDS: METHYLPREDNISOLONE 40 MG INJ IV SCH ×2 (11:51→16:28)
--- NOTE | 2020-10-29 12:25 | P.CNS ---
Date of Consult: 10/29/20 Primary Care Provider: Dr. Perry Chief Complaint: Dyspnea History of Present Illness: Patient is 60 years of age with a history of active tobacco abuse multiple medical problems admitted with progressive dyspnea history of treatment with up Augmentin some improvement patient is not in any bronchodilators or tested for COPD and severe diabetes and hypertension developed some respiratory distress and was admitted to the hospital for he has underlying congestive heart failure bilateral pleural effusions patient is feeling a little better Allergies No Known Allergies Allergy (Verified 12/07/18 10:31) Home Medications: Aspirin [Aspirin EC 81 MG] 81 mg PO DAILY 12/07/18 Atorvastatin Calcium [Lipitor] 10 mg PO BEDTIME 12/07/18 Dulaglutide [Trulicity] 1.5 mg SQ EVERY 7TH DAY 12/07/18 Enalapril Maleate [Vasotec] 20 mg PO DAILY 12/07/18 Levothyroxine [Synthroid] 125 mcg PO [id number] 12/07/18 Metformin HCl [Glucophage] 1,000 mg PO BID 12/07/18 Trazodone [Desyrel] 200 mg PO BEDTIME 12/07/18 hydroCHLOROthiazide [Hydrochlorothiazide] 25 mg PO DAILY 12/07/18 Dapagliflozin Propanediol [Farxiga] 1 tab PO DAILY 10/28/20 - Past Medical/Surgical History Diabetic: Yes -: Diabetes mellitus type 2 [id number] -: Hypertension -: Hyperlipidemia -: Hypothyroidism -: Tobacco abuse -: COPD -: Left knee surgery -: Tonsillectomy Psychosocial/ Personal History: Patient is a . She has 3 children. She does not work. - Family History Sister Medical History: Hypertension Father Medical History: Hypertension Mother Medical History: Hypertension - Social History Alcohol use: No CD- Drugs: No Caffeine use: Yes Place of Residence: Home Review of Systems 10-point ROS is otherwise unremarkable General: Weakness Respiratory: Cough, Shortness of Breath Physical Examination Temp Pulse Resp BP Pulse Ox 97.6 F 102 H 20 110/70 100 10/29/20 04:00 10/29/20 08:52 10/29/20 08:00 10/29/20 08:52 10/29/20 08:00 General: Alert, In no apparent distress, Oriented x3 Respiratory: Clear to auscultation bilaterally, Diminished Cardiovascular: No edema, Regular rate/rhythm Gastrointestinal: Normal bowel sounds, Non-distended Musculoskeletal: No swelling Laboratory Data (last 24 hrs) 10/28/20 10:32: Sodium 136, Potassium 4.2, BUN 43 H, Creatinine 1.54 H, Glucose 156 H, Total Bilirubin 0.6, AST 35, ALT 41, Alkaline Phosphatase 94, Lipase 55 L - Problems (1) COPD exacerbation Current Visit: Yes Status: Acute Plan: Harris is 60 years of age heavy smoker probably has underlying obstructive airways disease this feeling a little better harris was hypoxic condition a metabolic and respiratory acidosis as renal dysfunction severe diabetes the dense of sepsis recommend bronchodilators low-dose steroids the elevated troponin most likely induced by hypoxemia poly need outpatient evaluation there is no significant EKG changes the scan shows bilateral pleural effusion renal impairment
--- NOTE | 2020-10-29 12:36 | P.PN ---
Subjective Date of Service: 10/29/20 Primary Care Provider: Dr. Perry Chief Complaint: Dyspnea Subjective: Other (Patient has shortness of breath early this morning. Patient required BiPAP. Currently on BiPAP at this time.) Physical Examination - Vital Signs Temperature: 97.0 F Blood Pressure: 107/69 Pulse: 103 Respirations: 20 Pulse Ox (%): 99 - Physical Exam General: Alert, Oriented x3, Cooperative, Mild distress HEENT: Atraumatic Neck: Supple Respiratory: Diminished, Expiratory wheezes Cardiovascular: Normal pulses, Regular rate/rhythm Gastrointestinal: Normal bowel sounds, No tenderness, No masses, No rebound, No guarding Musculoskeletal: No erythema, No tenderness, No warmth Integumentary: No tenderness/swelling, No erythema, No warmth, No cyanosis Neurological: Normal speech, Normal strength at 5/5 x4 extr, Normal tone, Normal affect - Studies Laboratory Data (last 24 hrs) 10/28/20 10:32: Sodium 136, Potassium 4.2, BUN 43 H, Creatinine 1.54 H, Glucose 156 H, Total Bilirubin 0.6, AST 35, ALT 41, Alkaline Phosphatase 94, Lipase 55 L Microbiology Data (last 24 hrs): 10/28/20 10:12 Nasopharnyx Influenza Type A Antigen Screen - Final 10/28/20 10:12 Nasopharnyx Influenza Type B Antigen Screen - Final Medications List Reviewed: Yes Assessment & Plan Discharge Plan: Home Plan to discharge in: 48 Hours Physician Review Additional Text: Impression: Dyspnea secondary to acute respiratory failure with COPD exacerbation and acute on chronic diastolic CHF complicated with metabolic/respiratory acidosis Elevated troponin likely ischemic demand with possible underlying CAD Acute on chronic renal disease stage III Hypotension with history of hypertension likely medication related Diabetes mellitus type 2 [id number] Hypothyroidism Hyperlipidemia Tobacco abuse Plan: Dyspnea secondary to acute respiratory failure with COPD exacerbation and acute on chronic diastolic CHF complicated with metabolic/respiratory acidosis: Patient had difficulty breathing last night. Patient required BiPAP. Continue to wean off BiPAP. Case discussed in detail with cardiology and pulmonology. Will obtain echocardiogram. Patient had elevated troponin likely ischemic demand. Will change oral steroid to IV steroid. Continue COPD medication. Will add IV Lasix. Await echo results. Continue monitor closely. Medications have been adjusted. Patient will likely require home oxygen at discharge. Anticipate improvement over the next 24-48 hr. Elevated troponin likely ischemic demand with possible underlying CAD: Case discussed with cardiology. Likely ischemic demand. Continue heparin for DVT prophylaxis. No need for intervention at this time. Obtain echocardiogram to further evaluate. Await further recommendations from cardiology. Acute on Chronic renal disease stage III: Renal function has improved. Medications enalapril and hydrochlorothiazide currently on hold. This also includes her metformin and Farxiga. Continue monitor renal function. Will monitor and adjust medication.. Hypotension with history of hypertension likely medication related: Continue to hold enalapril and hydrochlorothiazide. Will monitor and adjust appropriately. Diabetes mellitus type 2 [id number]: A1c 7.0. Continue sliding scale. Hold metformin and Farxiga. Will need to obtain and verify home medication. Hypothyroidism: Continue with home medication. Hyperlipidemia: Continue with medication. Tobacco abuse: Will provide Nicoderm. Will teach on cessation education. Time Spent Managing Pts Care (In Minutes): 55
--- NOTE | 2020-10-29 14:21 | ECHO ---
HEIGHT: 5 ft 6 in WEIGHT: 197 lb 0 oz DATE OF STUDY: 10/29/[address]: 2-DIMENSIONAL: YES M.MODE: YES DOPPLER: YES COLOR FLOW: YES TDS: YES PORTABLE: DEFINITY: BUBBLE STUDY: DIAGNOSIS: EVALUATE FOR CONGESTIVE HEART FAILURE, PRESENTS WITH DYSPNEA CARDIAC HISTORY: CATHERIZATION: NO SURGERY: NO PROSTHETIC VALVE: NO PACEMAKER: NO MEASUREMENTS (cm) DIASTOLIC (NORMALS) SYSTOLIC (NORMALS) IVSd 0.9 (0.6-1.2) LA Diam 2.6 (1.9-4.0) LVEF 40-45% LVIDd 5.5 (3.5-5.7) LVIDs 4.2 (2.0-3.5) %FS % LVPWd 1.1 (0.6-1.2) Ao Diam 2.5 (2.0-3.7) 2 DIMENSIONAL ASSESSMENT: RIGHT ATRIUM: NORMAL LEFT ATRIUM: NORMAL RIGHT VENTRICLE: NORMAL LEFT VENTRICLE: NORMAL TRICUSPID VALVE: NORMAL MITRAL VALVE: NORMAL PULMONIC VALVE: NORMAL AORTIC VALVE: NORMAL PERICARDIAL EFFUSION: NONE AORTIC ROOT: NORMAL LEFT VENTRICULAR WALL MOTION: FELIX APICAL AKINESIS. DOPPLER/COLOR FLOW: MILD TRICUSPID AND MITRAL REGURGITATION. NORMAL RIGHT VENTRICULAR SYSTOLIC PRESSURE. COMMENTS: FELIX APICAL AKINESIS. EJECTION FRACTION 40-45%. MILD MITRAL AND TRICUSPID REGURGITATION. NORMAL RIGHT VENTRICULAR SYSTOLIC PRESSURE. TECHNOLOGIST: LUIZA CHOUDHURY
--- NOTE | 2020-10-29 20:00 | CON ---
Date of Consultation: 10/29/2020 Reason For Consultation: Elevated troponin. History Of Present Illness: Ms. Dickens is a 60-year-old woman, who came in complaining of shortness o f breath. She had shortness of breath with minimal activities that began about a month and a half ag o. It is exertional. She has had some productive cough. Denied any chest pain. Chest x-ray was or dered by Dr. Vallejo showed pneumonia. She denied any actual chest pain, nausea, vomiting. She denied PND, orthopnea, pedal edema, palpitations, or syncope. Denied any fever or chills. Allergies: NONE. Review of Systems: Negative. Social History: Negative. Family History: Noncontributory. Medications: Include Trulicity, Farxiga, hydrochlorothiazide, levothyroxine, metformin, trazodone, e nalapril, Lipitor, and aspirin. Past Medical History: Include hypertension, diabetes, dyslipidemia, and hypothyroidism. Physical Examination: Vital Signs: Stable. She was in sinus tachycardia. O2 saturation was 98% on 4 L nasal cannula. HEENT: Negative. Neck: Supple. No bruit. Chest: Diffuse expiratory wheezing. Cardiac: Regular rhythm and rate. No murmurs, gallops, or rubs. Abdomen: Benign. Extremities: No clubbing, cyanosis, or edema. Diagnostic Data: PO2 was 73, pCO2 was 45, pH was 7.27. Her creatinine is 1.38. White count is norm al. D-dimer was 550. Troponin was 0.35. C-reactive protein was 3.55. Impression And Plan: 1.Shortness of breath, most likely secondary to chronic obstructive pulmonary disease exacerbation. 2.Elevated troponin, most likely demand ischemia. Echocardiogram is pending. 3.Hypertension, well controlled. 4.Dyslipidemia. 5.Diabetes, well controlled. 6.Hypothyroidism. The patient presently is on inhalers, aspirin, Lipitor, Lasix, insulin, lorazepam, Synthroid, steroid s. We will continue her present regimen, see what the echocardiogram shows before making further dec isions regarding the troponin. I will discuss the case further with Dr. Laurent. YADIRA/NEVA Voice ID: [id number] Report ID: [id number]
[2020-10-29] MEDS: ATORVASTATIN 40 MG TAB PO SCH (20:27)
[2020-10-29] MEDS: LORazepam 2 MG/ML VIAL IV PRN (20:28)
[2020-10-29] MEDS: HEPARIN 5000 UNIT/ML 1 ML VIAL SQ SCH (20:28)
[2020-10-29] MEDS: FUROSEMIDE 20 MG/ 2ML VIAL IV SCH (21:46)
[2020-10-30] MEDS: METHYLPREDNISOLONE 40 MG INJ IV SCH ×3 (01:35→17:32)
[2020-10-30] MEDS: LEVALBUTEROL 0.63 MG/3 ML NEB NEB PRN ×4 (01:45→22:50)
[2020-10-30] MEDS: LEVOTHYROXINE SOD 0.125 MG TAB PO SCH (06:32)
[2020-10-30] MEDS: ASPIRIN 81 MG CHEWABLE TABLET PO SCH (09:11)
[2020-10-30] MEDS: HEPARIN 5000 UNIT/ML 1 ML VIAL SQ SCH ×2 (09:11→21:00)
[2020-10-30] MEDS: INSULIN -REGULAR HUMAN 50 UNIT/0.5 ML ML SQ SCH ×4 (09:11→21:44)
[2020-10-30] MEDS: FUROSEMIDE 20 MG/ 2ML VIAL IV SCH ×2 (09:26→21:44)
[2020-10-30] MEDS: DULERA 100/5 (MOMETASONE/FORMOTEROL) INHALER IH SCH ×2 (09:30→21:44)
--- NOTE | 2020-10-30 15:32 | P.PN ---
Subjective Date of Service: 10/30/20 Primary Care Provider: Dr. Perry Chief Complaint: Dyspnea Subjective: Improving Physical Examination - Vital Signs Temperature: 97.5 F Blood Pressure: 113/71 Pulse: 107 Respirations: 20 Pulse Ox (%): 97 - Physical Exam General: Alert, Cooperative HEENT: Atraumatic Neck: Supple Respiratory: Clear to auscultation bilaterally, Normal air movement Cardiovascular: Normal pulses, Regular rate/rhythm Neurological: Normal speech, Normal strength at 5/5 x4 extr, Normal tone, Normal affect - Studies Microbiology Data (last 24 hrs): 10/28/20 18:12 Sputum Sputum Gram Stain - Final 10/28/20 18:12 Sputum Culture & Sensitivity - Final Medications List Reviewed: Yes Assessment & Plan Discharge Plan: Home Plan to discharge in: 48 Hours Physician Review Additional Text: Impression: Dyspnea secondary to acute respiratory failure with COPD exacerbation and acute on chronic systolic CHF complicated with metabolic/respiratory acidosis Elevated troponin likely ischemic demand with possible underlying CAD with noted anterior apical akinesis on echo Acute on chronic renal disease stage III Hypotension with history of hypertension likely medication related Diabetes mellitus type 2 [id number] Hypothyroidism Hyperlipidemia Tobacco abuse Plan: Dyspnea secondary to acute respiratory failure with COPD exacerbation and acute on chronic systolic CHF complicated with metabolic/respiratory acidosis: Echocardiogram shows anterior apical akinesis. Ejection fraction 40%. Cardiology recommended heart catheterization to better stratify. Continue current treatment for CHF and COPD. This was addressed in detail with patient. Patient agrees. Patient will have heart catheterization tomorrow. Elevated troponin likely ischemic demand with possible underlying CAD with noted anterior apical akinesis on echo.: Continue as above. Will pursue heart catheterization tomorrow. Acute on Chronic renal disease stage III: Renal function has improved. Medications enalapril and hydrochlorothiazide currently on hold. This also includes her metformin and Farxiga. Continue monitor renal function. Will monitor and adjust medication.. Hypotension with history of hypertension likely medication related: Continue to hold enalapril and hydrochlorothiazide. Will monitor and adjust appropriately. Diabetes mellitus type 2 [id number]: A1c 7.0. Continue sliding scale. Hold metformin and Farxiga. Will need to obtain and verify home medication. Hypothyroidism: Continue with home medication. Hyperlipidemia: Continue with medication. Tobacco abuse: Will provide Nicoderm. Will teach on cessation education. Time Spent Managing Pts Care (In Minutes): 55
[2020-10-30] MEDS: ATORVASTATIN 40 MG TAB PO SCH (21:44)
[2020-10-30] MEDS: LORazepam 2 MG/ML VIAL IV PRN (23:10)
[2020-10-31] MEDS: METHYLPREDNISOLONE 40 MG INJ IV SCH ×2 (00:22→09:03)
[2020-10-31] MEDS: LEVOTHYROXINE SOD 0.125 MG TAB PO SCH (06:27)
[2020-10-31] MEDS: ASPIRIN 81 MG CHEWABLE TABLET PO SCH (06:27)
[2020-10-31] MEDS: METOPROLOL TAR 25 MG TAB PO SCH ×2 (06:27→18:00)
[2020-10-31] MEDS ORDERED: METOPROLOL TAR 25 MG TAB ONE (06:39)
[2020-10-31] MEDS ORDERED: METOPROLOL TAR 25 MG TAB PO ONE (06:53)
[2020-10-31] MEDS: LEVALBUTEROL 0.63 MG/3 ML NEB NEB PRN ×2 (07:40→19:50)
[2020-10-31] MEDS: HEPARIN 5000 UNIT/ML 1 ML VIAL SQ SCH ×2 (09:00→20:49)
[2020-10-31] MEDS: DULERA 100/5 (MOMETASONE/FORMOTEROL) INHALER IH SCH ×2 (09:02→20:50)
[2020-10-31] MEDS: FUROSEMIDE 20 MG/ 2ML VIAL IV SCH ×2 (09:02→20:47)
[2020-10-31] MEDS: INSULIN -REGULAR HUMAN 50 UNIT/0.5 ML ML SQ SCH ×4 (09:03→20:48)
--- NOTE | 2020-10-31 13:46 | P.PN ---
Subjective Date of Service: 10/31/20 Primary Care Provider: Dr. Perry Chief Complaint: Dyspnea Subjective: Other (Patient to get heart catheterization today.) Physical Examination - Vital Signs Temperature: 98.4 F Blood Pressure: 119/66 Pulse: 96 Respirations: 18 Pulse Ox (%): 97 - Physical Exam General: Alert, In no apparent distress, Cooperative HEENT: Atraumatic Neck: Supple Respiratory: Expiratory wheezes, Inspiratory wheezes Cardiovascular: Normal pulses, Regular rate/rhythm Neurological: Normal speech, Normal strength at 5/5 x4 extr, Normal tone, Normal affect - Studies Microbiology Data (last 24 hrs): 10/28/20 18:12 Sputum Sputum Gram Stain - Final 10/28/20 18:12 Sputum Culture & Sensitivity - Final Medications List Reviewed: Yes Assessment & Plan Discharge Plan: Home Plan to discharge in: 24 Hours Physician Review Additional Text: Impression: Dyspnea secondary to acute respiratory failure with COPD exacerbation and acute on chronic systolic CHF complicated with metabolic/respiratory acidosis Elevated troponin likely ischemic demand with possible underlying CAD with noted anterior apical akinesis on echo Acute on chronic renal disease stage III Hypotension with history of hypertension likely medication related Diabetes mellitus type 2 [id number] Hypothyroidism Hyperlipidemia Tobacco abuse Plan: Dyspnea secondary to acute respiratory failure with COPD exacerbation and acute on chronic systolic CHF complicated with metabolic/respiratory acidosis: Echocardiogram shows anterior apical akinesis. Ejection fraction 40%. Patient to have heart catheterization today. Await further recommendations from pulmonology and Cardiology after this. Elevated troponin likely ischemic demand with possible underlying CAD with noted anterior apical akinesis on echo.: Continue as above. Will pursue heart catheterization today. Acute on Chronic renal disease stage III: Renal function has improved. Medications enalapril and hydrochlorothiazide currently on hold. This also includes her metformin and Farxiga. Continue monitor renal function. Will monitor and adjust medication.. Hypotension with history of hypertension likely medication related: Continue to hold enalapril and hydrochlorothiazide. Will monitor and adjust appropriately. Diabetes mellitus type 2 [id number]: A1c 7.0. Continue sliding scale. Hold metformin and Farxiga. Will need to obtain and verify home medication. Hypothyroidism: Continue with home medication. Hyperlipidemia: Continue with medication. Tobacco abuse: Will provide Nicoderm. Will teach on cessation education. Time Spent Managing Pts Care (In Minutes): 55
[2020-10-31] MEDS ORDERED: NA CHLORIDE 0.9% 500 ML ONE (14:25)
[2020-10-31] MEDS ORDERED: HEPA 1000U/500MLS 1,000 UNIT/500 ML BAG IV ONE (15:41)
[2020-10-31] MEDS ORDERED: HEPARIN 5000 UNIT/ML 1 ML VIAL ONE (15:42)
[2020-10-31] MEDS ORDERED: MIDAZOLAM HCL 2 MG/2 ML INJ ONE (15:42)
[2020-10-31] MEDS ORDERED: FENTANYL CITR 100 MCG/2 ML ONE (15:43)
[2020-10-31] MEDS ORDERED: ACETYLCYST 20% 4 ML VIAL IH ONE (15:43)
[2020-10-31] MEDS ORDERED: VERAPAMIL HCL 10 MG/4 ML VIAL IV ONE (15:43)
[2020-10-31] MEDS ORDERED: ATROPINE SULF 1 MG/10 ML SYR IV ONE (15:43)
--- NOTE | 2020-10-31 15:44 | P.PN ---
Subjective Date of Service: 10/31/20 Primary Care Provider: Dr. Perry Chief Complaint: COPD exacerbation Doign much better. Multivessel CAD. Cath done No stents .sBOhas improved Review of Systems 10-point ROS is otherwise unremarkable Respiratory: Shortness of Breath Physical Examination - Vital Signs Temperature: 97.4 F Blood Pressure: 121/80 Pulse: 103 Respirations: 22 Pulse Ox (%): 97 - Physical Exam General: Alert, Oriented x3 Respiratory: Clear to auscultation bilaterally Cardiovascular: No edema, Regular rate/rhythm, Normal S1 S2 Gastrointestinal: Normal bowel sounds, Soft and benign - Studies Microbiology Data (last 24 hrs): 10/28/20 18:12 Sputum Sputum Gram Stain - Final 10/28/20 18:12 Sputum Culture & Sensitivity - Final Medications List Reviewed: Yes Assessment & Plan - Problems (Diagnosis) (1) COPD exacerbation Current Visit: Yes Status: Acute Plan: AW COPD exerbation .Cardiac cath multivessel CAD. No stents. Doing a lot better Needs long acting BD for home. Out pt PFt. Qualifies for hoem O2 Reduce dose of predAbnormalECHO apicalakinesis. Slight dec in LVEF
[2020-10-31] MEDS ORDERED: LIDOCAINE 1% 20 ML MDV ONE (16:00)
--- NOTE | 2020-10-31 18:52 | OP ---
Date of Procedure: 10/31/2020 Surgeon: JUDY RICHARDSON Procedure Performed: Selective coronary angiogram. Indication: Non-ST elevation myocardial infarction. Access: Right radial artery 6-Indonesian, closed with TR band. Complications: None. Estimated Blood Loss: Bleeding less than 5 mL. Description Of Procedure: After risks, benefits, and alternatives were explained, the patient agreed to the procedure and signed informed consent. We gave Versed and fentanyl to achieve adequate moder ate sedation. Then, we accessed the right radial artery using a pediatric micropuncture kit and then placed a 6-Indonesian slender sheath, took a 5-Ind[place]ian [place] catheter into the aortic root and took stand javed views and then removed the catheter, and the sheath was removed and placed TR band with good hemo stasis. Findings: 1.Left main; moderate size with no significant disease. 2.LAD; totally occluded proximally. Gets some collateral flow from the left circumflex; however, do es not fill the vessel distally. 3.Left circumflex; proximally occluded with good collaterals from the RCA that fills the OM and the circ in retrograde fashion. 4.RCA; heavily calcified from the ostium all the way to the bifurcation with significant diffuse dis ease about 80% to 90% and there is a right PDA focal stenosis at 90%. Of note, the RCA gives signifi cant amount of. 5.collateral to the left system. Conclusion: Severe multivessel coronary artery disease as above. Recommendations: Transfer for CT Surgery evaluation. If the patient is not a candidate for CT surge ry, she probably will benefit from an atherectomy followed by PCI of the RCA. SR/MODL Voice ID: [id number] Report ID: [id number]
[2020-10-31] MEDS ORDERED: GLUCAGON 1 MG/VIAL IM PRN (18:59)
[2020-10-31] MEDS ORDERED: D50W 25 GM/50 ML SYRINGE IV PRN (18:59)
[2020-10-31] MEDS: ATORVASTATIN 40 MG TAB PO SCH (20:48)
[2020-10-31] MEDS: predniSONE 20 MG TAB PO SCH (20:48)
[2020-10-31] MEDS ORDERED: predniSONE 20 MG TAB PO SCH (21:00)
[2020-10-31] MEDS: LORazepam 2 MG/ML VIAL IV PRN (21:36)
[2020-11-01 05:20] VITALS: BMI 30.8
[2020-11-01] MEDS: LEVOTHYROXINE SOD 0.125 MG TAB PO SCH (05:22)
[2020-11-01] MEDS: METOPROLOL TAR 25 MG TAB PO SCH ×2 (05:22→17:11)
[2020-11-01] MEDS: INSULIN -REGULAR HUMAN 50 UNIT/0.5 ML ML SQ SCH (07:30)
[2020-11-01] MEDS: ASPIRIN 81 MG CHEWABLE TABLET PO SCH (07:59)
[2020-11-01] MEDS: predniSONE 20 MG TAB PO SCH ×2 (07:59→21:03)
[2020-11-01] MEDS: FUROSEMIDE 20 MG/ 2ML VIAL IV SCH (08:00)
[2020-11-01] MEDS: DULERA 100/5 (MOMETASONE/FORMOTEROL) INHALER IH SCH ×2 (08:01→21:00)
--- NOTE | 2020-11-01 08:30 | P.PN ---
Subjective Date of Service: 11/01/20 Primary Care Provider: Dr. Perry Chief Complaint: COPD exacerbation Subjective: Doing well (No significant chest pain or shortness of breath.) Physical Examination - Vital Signs Temperature: 96.8 F Blood Pressure: 106/70 Pulse: 96 Respirations: 19 Pulse Ox (%): 94 - Physical Exam General: Alert, In no apparent distress, Cooperative HEENT: Atraumatic Neck: Supple Respiratory: Expiratory wheezes Cardiovascular: Normal pulses, Regular rate/rhythm Gastrointestinal: No tenderness, No masses, No rebound, No guarding Musculoskeletal: No erythema, No tenderness, No warmth Integumentary: No tenderness/swelling, No erythema, No warmth, No cyanosis Neurological: Normal speech, Normal strength at 5/5 x4 extr, Normal tone, Normal affect - Studies Medications List Reviewed: Yes Assessment & Plan Discharge Plan: Transfer Plan to discharge in: 24 Hours Physician Review Additional Text: Impression: Dyspnea secondary to acute respiratory failure with COPD exacerbation and acute on chronic systolic CHF complicated with metabolic/respiratory acidosis NSTEMI status post heart catheterization showing significant multi-vessel disease(left main-moderate size with no significant disease, LAD-totally occluded proximally, left circumflex-proximally occluded with good collaterals from the RCA, RCA-heavily calcified from the ostium all the way to the bifurcation with significant diffuse disease around 80-90% and right PDA focal stenosis at 90% stenosis) Acute on chronic renal disease stage III Hypotension with history of hypertension likely medication related Diabetes mellitus type 2 with hyperglycemia Hypothyroidism Hyperlipidemia Depression with anxiety Tobacco abuse Plan: Dyspnea secondary to acute respiratory failure with COPD exacerbation and acute on chronic systolic CHF complicated with metabolic/respiratory acidosis: Maintain sats above 93%. Patient on nasal cannula. Continue to wean off steroid. Continue COPD medication. Will adjust Lasix to oral. Continue 1500 cc per day fluid restriction. Echocardiogram shows anterior apical akinesis. Ejection fraction 40%. Patient had heart catheterization. Patient has significant multi-vessel disease. Heart catheterization findings show left main- moderate size with no significant disease, LAD-totally occluded proximally, left circumflex-proximally occluded with good collaterals from the RCA, RCA-heavily calcified from the ostium all the way to the bifurcation with significant diffuse disease around 80-90% and right PDA focal stenosis at 90% stenosis. Case discussed in detail with cardiology yesterday. Cardiology plans for transfer for CV surgery. If the patient is not a candidate for CV surgery, patient would benefit from artherectomy followed by PCI of the RCA. Await approval for transfer. NSTEMI status post heart catheterization showing significant multi-vessel disease(left main-moderate size with no significant disease, LAD-totally occluded proximally, left circumflex-proximally occluded with good collaterals from the RCA, RCA-heavily calcified from the ostium all the way to the bifurcation with significant diffuse disease around 80-90% and right PDA focal stenosis at 90% stenosis): As recommended by Cardiology. Patient will be transferred for CV surgery. If not a candidate for CV surgery, patient would benefit with arterectomy followed by PCI of the RCA. Will await transfer to high-level facility. Patient on beta-isiah therapy. Will adjust Lasix to oral. Acute on Chronic renal disease stage III: Renal function stable. Medications enalapril, metformin, Farxiga, and hydrochlorothiazide currently on hold. Continue monitor renal function. Will adjust medications accordingly. Hypotension with history of hypertension likely medication related: Patient off enalapril and hydrochlorothiazide. Now on beta-isiah. Diabetes mellitus type 2 with hyperglycemia: A1c 7.0. Continue sliding scale. Blood sugar slightly elevated. Continue to hold metformin and Farxiga. Patient on basal insulin for better control Hypothyroidism: Continue with home medication. Hyperlipidemia: Continue with medication. Depression with anxiety: Continue medication Tobacco abuse: Will provide Nicoderm. Will teach on cessation education. Time Spent Managing Pts Care (In Minutes): 55
[2020-11-01] MEDS: HEPARIN 5000 UNIT/ML 1 ML VIAL SQ SCH ×2 (08:47→21:05)
[2020-11-01] MEDS: LEVALBUTEROL 0.63 MG/3 ML NEB NEB PRN ×2 (08:49→19:55)
[2020-11-01] MEDS ORDERED: FUROSEMIDE 40 MG TABLET PO SCH ×2 (09:00→17:00)
--- NOTE | 2020-11-01 15:26 | P.DS ---
Admission Date: 10/29/20 Discharge Date: 11/01/20 Primary Care Provider: Dr. Perry Disposition: TRANSFER TO [facility] Discharge Condition: GOOD Reason for Admission: COPD exacerbation Consultations: Pulmonary-Dr. Perez Cardiology-Dr. Richardson/Dr. Flores Procedures: CT Scan: FINDINGS: No evidence of pulmonary thromboembolism. No acute aortic finding demonstrated. Ground-glass opacity in both lungs is noted with atelectasis present, suggesting mild interstitial pulmonary edema. Cardiac size is prominent. Small bilateral pleural effusions. No concerning bony finding. IMPRESSION: No evidence of pulmonary thromboembolism. Mild CHF suspected. Renal ultrasound: FINDINGS: The right kidney measures 10 cm with a normal echotexture. The left kidney measures 10 cm with a normal echotexture. Hydronephrosis is not seen. The bladder is decompressed as the patient recently voided. IMPRESSION: Unremarkable renal ultrasound. ECHO: LEFT VENTRICULAR WALL MOTION: FELIX APICAL AKINESIS. DOPPLER/COLOR FLOW: MILD TRICUSPID AND MITRAL REGURGITATION. NORMAL RIGHT VENTRICULAR SYSTOLIC PRESSURE. COMMENTS: FELIX APICAL AKINESIS. EJECTION FRACTION 40-45%. MILD MITRAL AND TRICUSPID REGURGITATION. NORMAL RIGHT VENTRICULAR SYSTOLIC Heart catheterization: Date of Procedure: 10/31/2020 Surgeon: JUDY RICHARDSON Procedure Performed: Selective coronary angiogram. Indication: Non-ST elevation myocardial infarction. Access: Right radial artery 6-Slovenian, closed with TR band. Complications: None. Estimated Blood Loss: Bleeding less than 5 mL. Findings: 1. Left main; moderate size with no significant disease. 2. LAD; totally occluded proximally. Gets some collateral flow from the left circumflex; however, does not fill the vessel distally. 3. Left circumflex; proximally occluded with good collaterals from the RCA that fills the OM and the circ in retrograde fashion. 4. RCA; heavily calcified from the ostium all the way to the bifurcation with significant diffuse disease about 80% to 90% and there is a right PDA focal stenosis at 90%. Of note, the RCA gives significant amount of. 5. collateral to the left system. Conclusion: Severe multivessel coronary artery disease as above. Recommendations: Transfer for CT Surgery evaluation. If the patient is not a candidate for CT surgery, she probably will benefit from an atherectomy followed by PCI of the RCA. Medical problem list: Dyspnea secondary to acute respiratory failure with COPD exacerbation and acute on chronic systolic CHF complicated with metabolic/respiratory acidosis NSTEMI status post heart catheterization showing significant multi-vessel disease(left main-moderate size with no significant disease, LAD-totally occluded proximally, left circumflex-proximally occluded with good collaterals from the RCA, RCA-heavily calcified from the ostium all the way to the bifurcation with significant diffuse disease around 80-90% and right PDA focal stenosis at 90% stenosis) Acute on chronic renal disease stage III Hypotension with history of hypertension likely medication related Diabetes mellitus type 2 with hyperglycemia Hypothyroidism Hyperlipidemia Depression with anxiety Tobacco abuse Brief History of Present Illness: 60-year-old female with history of tobacco abuse, COPD, hypertension, diabetes, hypothyroidism, hyperlipidemia. Patient reported shortness of breath over the past 1-2 months. She was seen early in September and given Augmentin for 10 days. She reported some improvement. Then the shortness of breath continued. She then used her albuterol medication with improvement bed noted that she had to increase her frequency just to get some relief. She had reported some increased nasal congestion. She denies any fever, chills. She reports being seen by endocrinology 1-2 weeks ago. It was noted that her blood pressure was low at that time. Endocrinology decided to take her off of hydrochlorothiazide. Patient also takes enalapril. Her shortness of breath in an improved. She was told to come to the ER for further evaluation. In the ER patient evaluated. Blood pressure initially 101/58. White count 6.1, hemoglobin 16. Platelet count 178. Sodium 136, potassium 4.2. BUN of 43, creatinine 1.54 with a GFR 34. Glucose 156. Chest x-rayed showed some possible C HF. CT chest shows no pulmonary embolism. Interstitial edema noted likely CHF. COVId negative. D-dimer 550. Lactic acid within normal range at 1.3. Pro calcitonin unremarkable. BNP elevated greater than 7000. Patient given IV fluids in the emergency room. Patient stable this time. Patient admitted for further evaluation. When I saw the patient ER, patient alert, cooperative. Patient appears dry. Blood pressure is still running around 85-95 systolic with map of greater than 65. Hospital Course: Patient presented with dyspnea/hypoxia secondary to acute respiratory failure with COPD exacerbation and acute on chronic systolic CHF complicated with metabolic/respiratory acidosis. Patient was admitted and required BiPAP. Patient was evaluated further by pulmonology and Cardiology. CT scan revealed no pulmonary embolism. Her cardiac enzymes trended abnormal. Echocardiogram showed some akinesis. Heart catheterization was recommended. Heart catheterization performed. Patient has significant multi-vessel disease. Heart catheterization findings show left main-moderate size with no significant disease, LAD-totally occluded proximally, left circumflex-proximally occluded with good collaterals from the RCA, RCA-heavily calcified from the ostium all the way to the bifurcation with significant diffuse disease around 80-90% and right PDA focal stenosis at 90% stenosis. Case discussed in detail with cardiology. Cardiology recommended for transfer for CV surgery. If the patient is not a candidate for CV surgery, patient would benefit from artherectomy followed by PCI of the RCA. Cardiology spoke with CV surgery who accepted the patient. Case discussed with hospitalist. Hospitalist agrees with transfer. Patient will be transferred for further evaluation and treatment. Patient stable for transfer. As mentioned above, patient with NSTEMI status post heart catheterization showing significant multi-vessel disease(left main-moderate size with no significant disease, LAD-totally occluded proximally, left circumflex-proximally occluded with good collaterals from the RCA, RCA-heavily calcified from the ostium all the way to the bifurcation with significant diffuse disease around 80-90% and right PDA focal stenosis at 90% stenosis). Patient remains on Lasix, metoprolol, aspirin. Patient also had Acute on Chronic renal disease stage III. This was likely compromise with multiple medications including enalapril, metformin, Farxiga, and hydrochlorothiazide which were discontinued during her stay. At transfer medications were remained discontinued. Hypotension was initially noted. Patient had received some fluid bolus in the emergency room. This was discontinued as the patient required diuretic therapy. Patient with history of hypertension. At this point patient is now off enalapril and hydrochlorothiazide. Blood pressure stable on beta isiah- metoprolol. Patient with Diabetes mellitus type 2 with hyperglycemia. Patient was taken off metformin and Farxiga. At this time patient is on basal insulin-Lantus. This will be continued. Further adjustment can be done at the other facility. Patient with hypothyroidism. Tsh within normal range. Patient will continue with current thyroid medication. Patient with hyperlipidemia. At discharge she will continue with current medication. Patient with depression with anxiety. Patient required Ativan as needed. This may be continued. Patient also takes trazodone at night. Tobacco abuse noted. Cessation was addressed in detail. Patient may need nicotine patch. Continue tobacco cessation. Vital Signs/Physical Exam: Temp Pulse Resp BP Pulse Ox 96.9 F 108 H 16 117/79 98 11/01/20 12:00 11/01/20 12:00 11/01/20 12:00 11/01/20 12:00 11/01/20 12:00 General: Alert, In no apparent distress, Oriented x3, Cooperative HEENT: Atraumatic Neck: Supple Respiratory: Clear to auscultation bilaterally, Normal air movement Cardiovascular: Normal pulses, Regular rate/rhythm Gastrointestinal: No tenderness, No masses, No rebound, No guarding Integumentary: No erythema, No warmth, No cyanosis Neurological: Normal speech, Normal strength at 5/5 x4 extr, Normal tone, Normal affect Laboratory Data at Discharge: WBC 6.9 K/uL (4.3-10.9) 10/29/20 03:29 Hgb 15.3 g/dL (12.0-15.0) H 10/29/20 03:29 Hct 47.1 % (36.0-45.0) H 10/29/20 03:29 Plt Count 150 K/uL (152-406) L 10/29/20 03:29 PT 10.9 SECONDS (9.5-12.5) 10/28/20 10:32 INR 0.92 10/28/20 10:32 APTT 30.9 SECONDS (24.3-36.9) 10/28/20 10:32 Sodium 136 mmol/L (136-145) 10/29/20 03:29 Potassium 4.5 mmol/L (3.5-5.1) 10/29/20 03:29 BUN 44 mg/dL (7-18) H 10/29/20 03:29 Creatinine 1.38 mg/dL (0.55-1.3) H 10/29/20 03:29 Glucose 217 mg/dL (74-106) H 10/29/20 03:29 Magnesium 2.0 mg/dL (1.8-2.4) 10/29/20 03:29 Total Bilirubin 0.6 mg/dL (0.2-1.0) 10/28/20 10:32 AST 35 U/L (15-37) 10/28/20 10:32 ALT 41 U/L (12-78) 10/28/20 10:32 Alkaline Phosphatase 94 U/L (45-117) 10/28/20 10:32 Troponin I 0.35 ng/mL (0.0-0.045) H 10/29/20 03:29 Triglycerides 64 mg/dL (<150) 10/29/20 03:29 Cholesterol 136 mg/dL (<200) 10/29/20 03:29 HDL Cholesterol 59 mg/dL (40-60) 10/29/20 03:29 Cholesterol/HDL Ratio 2.31 10/29/20 03:29 Lipase 55 U/L (73-393) L 10/28/20 10:32 Home Medications: Aspirin [Aspirin EC 81 MG] 81 mg PO DAILY 12/07/18 Levothyroxine [Synthroid*] 125 mcg PO [id number] 12/07/18 Trazodone [Desyrel*] 200 mg PO BEDTIME 12/07/18 Atorvastatin Calcium [Lipitor] 80 mg PO BEDTIME #60 tab 11/01/20 Furosemide [Lasix*] 40 mg PO BIDL #60 tab 11/01/20 Insulin Glargine Human [Lantus*] 20 units SQ DAILY AT SUPPER #1 vial 11/01/20 Metoprolol Tartrate [Lopressor*] 12.5 mg PO BID 6AM 6PM #60 tab 11/01/20 Mometasone/Formoterol [Dulera 100 Mcg/5 Mcg Inhaler] 2 puff IH BID #1 inhaler 11/01/20 predniSONE [Prednisone*] 10 mg PO SEECOM #21 tab 11/01/20 New Medications: Mometasone/Formoterol [Dulera 100 Mcg/5 Mcg Inhaler] 2 puff IH BID #1 inhaler Insulin Glargine Human [Lantus*] 20 units SQ DAILY AT SUPPER #1 vial Furosemide [Lasix*] 40 mg PO BIDL #60 tab Atorvastatin Calcium [Lipitor] 80 mg PO BEDTIME #60 tab Metoprolol Tartrate [Lopressor*] 12.5 mg PO BID 6AM 6PM #60 tab predniSONE [Prednisone*] 10 mg PO SEECOM #21 tab Patient Discharge Instructions: Patient be transferred to [place]. Patient presented with dyspnea/hypoxia secondary to acute respiratory failure with COPD exacerbation and acute on chronic systolic CHF complicated with metabolic/respiratory acidosis. Patient was admitted and required BiPAP. Patient was evaluated further by pulmonology and Cardiology. CT scan revealed no pulmonary embolism. Her cardiac enzymes trended abnormal. Echocardiogram showed some akinesis. Heart catheterization was recommended. Heart catheterization performed. Patient has significant multi-vessel disease. Heart catheterization findings show left main-moderate size with no significant disease, LAD-totally occluded proximally, left circumflex-proximally occluded with good collaterals from the RCA, RCA-heavily calcified from the ostium all the way to the bifurcation with significant diffuse disease around 80-90% and right PDA focal stenosis at 90% stenosis. Case discussed in detail with card iology. Cardiology recommended for transfer for CV surgery. If the patient is not a candidate for CV surgery, patient would benefit from artherectomy followed by PCI of the RCA. Cardiology spoke with CV surgery who accepted the patient. Case discussed with hospitalist. Hospitalist agrees with transfer. Patient will be transferred for further evaluation and treatment. Patient stable for transfer. As mentioned above, patient with NSTEMI status post heart catheterization showing significant multi-vessel disease(left main-moderate size with no significant disease, LAD-totally occluded proximally, left circumflex- proximally occluded with good collaterals from the RCA, RCA-heavily calcified from the ostium all the way to the bifurcation with significant diffuse disease around 80-90% and right PDA focal stenosis at 90% stenosis). Patient remains on Lasix, metoprolol, aspirin. Patient also had Acute on Chronic renal disease stage III. This was likely compromise with multiple medications including enalapril, metformin, Farxiga, and hydrochlorothiazide which were discontinued during her stay. At transfer medications were remained discontinued. Hypotension was initially noted. Patient had received some fluid bolus in the emergency room. This was discontinued as the patient required diuretic therapy. Patient with history of hypertension. At this point patient is now off en alapril and hydrochlorothiazide. Blood pressure stable on beta isiah- metoprolol. Patient with Diabetes mellitus type 2 with hyperglycemia. Patient was taken off metformin and Farxiga. At this time patient is on basal insulin- Lantus. This will be continued. Further adjustment can be done at the other facility. Patient with hypothyroidism. Tsh within normal range. Patient will continue with current thyroid medication. Patient with hyperlipidemia. At discharge she will continue with current medication. Patient with depression with anxiety. Patient required Ativan as needed. This may be continued. Patient also takes trazodone at night. Tobacco abuse noted. Cessation was addressed in detail. Patient may need nicotine patch. Continue tobacco cessation. Diet: ADA Activity: Ad tony Followup: Alex Peryr MD [Primary Care Provider] - Time spent managing pt's care (in minutes): 55
[2020-11-01] MEDS ORDERED: INSULIN GLARGINE 100 UNITS/ML SQ SCH (17:00)
[2020-11-01 20:56] VITALS: O2SAT 95
[2020-11-01] MEDS ORDERED: ATORVASTATIN 40 MG TAB PO SCH (21:00)
[2020-11-01] MEDS: LORazepam 2 MG/ML VIAL IV PRN (21:02)
[2020-11-01 21:44] VITALS: BP 125/86; TEMP 97.1
--- NOTE | 2020-11-03 12:59 | PN ---
Date of Progress Note: 10/30/2020 Ms. Dickens had came in with shortness of breath, chest pressure, most likely COPD exacerbation, slight ly elevated troponin. Echocardiogram, however, yesterday showed wall motion abnormalities in the ant eroapical wall. The case was discussed with Dr. Laurent and with the patient. I recommended that we do a left heart catheterization to define her coronary anatomy. She understands the risks and the be nefits of the procedure. Today, she is feeling better, but she is still unable to lie flat. She is on inhalers, nebulizers and Lasix. We will continue her present regimen, keep her n.p.o. after midni ght, and plan the catheterization for 10/31/2020. YADIRA/NEVA Voice ID: [id number] Report ID: [id number]
== END 2020-11-01 23:40 | disposition short-term general hospital (02) | DRG 280 ==
LOC: ER 09:46 → ERHOLD 13:35 → 2ND 14:34 → OBSVTOIN 10-29 13:06
PROVIDERS: ADMIT Family Medicine; ATTEND Family Medicine
PROC: 5A09557 Assistance with Respiratory Ventilation, Greater than 96 Consecutive Hours, Continuous Positive Airway Pressure (ICD-10-PCS; 2020-10-29)
PROC: 4A023N7 Measurement of Cardiac Sampling and Pressure, Left Heart, Percutaneous Approach (ICD-10-PCS; principal; 2020-10-31)
PROC: B2111ZZ Fluoroscopy of Multiple Coronary Arteries using Low Osmolar Contrast (ICD-10-PCS; 2020-10-31)
DX: I13.0 Hypertensive heart and chronic kidney disease with heart failure and stage 1 through stage 4 chronic kidney disease, or unspecified chronic kidney disease (principal); J96.01 Acute respiratory failure with hypoxia; I21.4 Non-ST elevation (NSTEMI) myocardial infarction; I50.23 Acute on chronic systolic (congestive) heart failure; J44.1 Chronic obstructive pulmonary disease with (acute) exacerbation; N18.30 Chronic kidney disease, stage 3 unspecified; E11.22 Type 2 diabetes mellitus with diabetic chronic kidney disease; E11.65 Type 2 diabetes mellitus with hyperglycemia; E03.9 Hypothyroidism, unspecified; N28.9 Disorder of kidney and ureter, unspecified; E86.0 Dehydration; I25.10 Atherosclerotic heart disease of native coronary artery without angina pectoris; F41.8 Other specified anxiety disorders; E78.5 Hyperlipidemia, unspecified; F17.210 Nicotine dependence, cigarettes, uncomplicated; I95.2 Hypotension due to drugs; T50.905A Adverse effect of unspecified drugs, medicaments and biological substances, initial encounter; Z79.82 Long term (current) use of aspirin; Z79.890 Hormone replacement therapy; Z79.84 Long term (current) use of oral hypoglycemic drugs; Z71.6 Tobacco abuse counseling; Z79.899 Other long term (current) drug therapy; Z20.828 Contact with and (suspected) exposure to other viral communicable diseases
CPT/HCPCS: 36415; 71045; 71275; 76770; 80048; 80061; 80076; 81003; 81015; 82550; 82553; 82728; 82805; 82947; 83036; 83605; 83690; 83735; 83880; 84145; 84439; 84443; 84484; 85025; 85379; 85610; 85730; 86140; 87040; 87070; 87205; 87804; 93005; 93306; 93454; 94640; 94660; 94760; 96361; 96365; 96375; 99285; C1893; J0456; J1100; J1644; J1815; J1940; J2250; J2920; J3010; J7030; J7040; J7050; J7512; J7606; Q9967; U0003